=== PATIENT | male | born 1975 | race Caucasian/White ===

== ENCOUNTER 2019-06-19 14:30 | Emergency (ER) | payer MEDICARE, MEDICAID ==
[~2019-06-19] VITALS: Ht 190.5 cm; Wt 78.6 kg
[2019-06-19 16:35] VITALS: BP 105/94
[2019-06-19 17:07] LABS: CLARITY,URINE CLOUDY (Clear); COLOR,URINE YELLOW (Yellow); GLUCOSE, URINE NEGATIVE (Neg); KETONES,URINE NEGATIVE (Neg); LEUKOCYTE ESTERASE ,URINE LARGE (Neg); NITRITES, URINE NEGATIVE (Neg); OCCULT BLOOD,URINE MODERATE (Neg); PROTEIN,URINE NEGATIVE (Neg); UROBILINOGEN,URINE 0.2 E.U/dL (0.2-1.0)
[2019-06-19 17:10] LABS: UA COLLECTION TYPE FOLEY CATH
[2019-06-19 17:19] LABS: AMORPHOUS PHOSPHATES 1+; BACTERIA,URINE 3+ /HPF (Neg); MUCUS STRANDS NONE SEEN /LPF (Neg); SQUAMOUS EPITHELIAL CELL,UR FEW /LPF (FEW); WBC CLUMPS,URINE MANY /HPF (NEGATIVE); WBC,URINE TNTC /HPF (0-4)
[2019-06-19] MEDS ORDERED: CefTRIAXone 1000mg IM Kit (w/lidocaine diluent) IM ONE (17:40)
[2019-06-19] MEDS ORDERED: CEPH250T PO (18:49)
[2019-06-19] MEDS ORDERED: baclofen 10mg tablet PO ONE (18:50)
--- NOTE | 2019-06-19 19:13 | NUR ---
Awaiting pharmacy to verify Gentamycin dose for dc. "Ok" per Dr. Blackwood to hold discharge at this time.
--- NOTE | 2019-06-19 19:13 | NUR ---
Note izaiah in EDM - 06/19/19 at 1922 by ANDRADE Awaiting pharmacy to verify Gentamycin dose for dc. "Ok" per Dr. Blackwood to hold discharge at this time.
[2019-06-19] MEDS ORDERED: SODIUM CL IRRIG IR ONE (19:35)
[2019-06-19] MEDS ORDERED: GENTAMICIN IR ONE (19:35)
--- NOTE | 2019-06-25 16:40 | NUR ---
PT CALLED AND STATED HE IS DOING MUCH BETTER AND HAS NO NEW COMPLAINTS. PT INFORMED THAT IF HE STARTS FEELING ILL AND NOT IMPROVING TO RETURN TO THE ER FOR FURTHER EVALUATION AND POSSIBLE IV ANTIBIOTICS FOR A + URINE CULTURE. PT QUESTIONS ANSWERED AND STATED UNDERSTANDING.
== END 2019-06-19 21:07 | disposition home or self-care (01) ==
LOC: ER 14:31
DX: T83.090A Other mechanical complication of cystostomy catheter, initial encounter (principal); G35 Multiple sclerosis; N39.0 Urinary tract infection, site not specified; Z98.890 Other specified postprocedural states; Y84.6 Urinary catheterization as the cause of abnormal reaction of the patient, or of later complication, without mention of misadventure at the time of the procedure; Y92.89 Other specified places as the place of occurrence of the external cause; Z79.2 Long term (current) use of antibiotics
CPT/HCPCS: 51702; 81001; 87077; 87088; 87186; 96372; 99284; J0696; J1580

== ENCOUNTER 2019-07-01 06:04 | Emergency (ER) | payer MEDICARE, MEDICAID ==
[~2019-07-01] VITALS: Ht 190.5 cm; Wt 77.3 kg
[2019-07-01 06:42] LABS: CLARITY,URINE CLOUDY (Clear); COLOR,URINE STRAW (Yellow); GLUCOSE, URINE NEGATIVE (Neg); KETONES,URINE NEGATIVE (Neg); LEUKOCYTE ESTERASE ,URINE LARGE (Neg); NITRITES, URINE NEGATIVE (Neg); OCCULT BLOOD,URINE MODERATE (Neg); PROTEIN,URINE NEGATIVE (Neg); UROBILINOGEN,URINE 0.2 E.U/dL (0.2-1.0)
[2019-07-01 06:43] LABS: UA COLLECTION TYPE FOLEY CATH
[2019-07-01 06:52] LABS: BACTERIA,URINE 2+ /HPF (Neg); MUCUS STRANDS NONE SEEN /LPF (Neg); SQUAMOUS EPITHELIAL CELL,UR NONE SEEN /LPF (FEW); WBC CLUMPS,URINE MANY /HPF (NEGATIVE); WBC,URINE TNTC /HPF (0-4)
[2019-07-01 06:57] LABS: BASOPHILS % (AUTO) 0.3 % (0-1); EOSINOPHILS # (AUTO) 0.3 X10'3 (0-0.9); HEMATOCRIT 48.1 % (42.0-52.0); HEMOGLOBIN 16.5 g/dl (14.0-17.9); LYMPHOCYTES # (AUTO) 1.1 X10'3 (1.1-4.8); LYMPHOCYTES % (AUTO) 14.3 % (21-51); MEAN CORPUSCULAR HEMOGLOBIN 30.5 PG (27.0-31.0); MEAN CORPUSCULAR HGB CONC 34.3 g/dL (33.0-36.5); MEAN CORPUSCULAR VOLUME 88.8 FL (78-98); MEAN PLATELET VOLUME 8.8 FL (7.4-10.4); MONOCYTES # (AUTO) 0.5 X10'3 (0-0.9); MONOCYTES % (AUTO) 7.2 % (2-12); NEUTROPHILS # (AUTO) 5.6 X10'3 (1.8-7.7); NEUTROPHILS % (AUTO) 74.2 % (42-75); PLATELET COUNT 153 X10'3 (140-440); RED BLOOD COUNT 5.41 X10'6 (4.70-6.10); RED CELL DISTRIBUTION WIDTH 14.3 % (11.5-14.5); WHITE BLOOD COUNT 7.5 X10'3 (4.5-11.0)
[2019-07-01 06:59] LABS: ALANINE AMINOTRANSFERASE 24 U/L (12-78); ALBUMIN 3.3 G/DL (3.4-5.0); ALBUMIN/GLOBULIN RATIO 0.9 (1.1-1.5); ALKALINE PHOSPHATASE 78 IU/L (46-116); ANION GAP 8 (8-16); ASPARTATE AMINO TRANSFERASE 14 U/L (10-37); BILIRUBIN,TOTAL 0.5 MG/DL (0.1-1.0); BLOOD UREA NITROGEN 12 MG/DL (7-18); BUN/CREATININE RATIO 16.9 (5.4-32.0); CALCIUM 9.2 MG/DL (8.5-10.1); CHLORIDE 107 MMOL/L (99-107); CREATININE 0.71 MG/DL (0.60-1.10); GLUCOSE 106 MG/DL (70-104); LIPASE 153 U/L (73-393); POTASSIUM 3.8 MMOL/L (3.5-5.1); SODIUM 143 MMOL/L (135-145); TOTAL CARBON DIOXIDE 27.6 MMOL/L (24-32); TOTAL PROTEIN 6.9 G/DL (6.4-8.2); eGFR > 90 ML/MIN
[2019-07-01] MEDS ORDERED: piperacillin/tazo 3.375gm/50ml 50 ML IV ONE (07:10)
--- NOTE | 2019-07-01 07:45 | NUR ---
PT REQUESTING TO TAKE HIS HOME RX FOR BACLOFEN HE TAKES IT AT 8 AM. SPOKE TO EDWY REGARDING THIS, AND MD CANTORAYED PT TAKING HOME MEDICATION.
--- NOTE | 2019-07-01 10:29 | NUR ---
[facility]NAVA[facility] FOR TRANSPORT. HOME HEALTH LVN HAVE BEEN PAGED.
--- NOTE | 2019-07-01 11:08 | NUR ---
[facility] TRANSPORT INITIATED, ETA WITHIN THE HOUR
--- NOTE | 2019-07-01 12:28 | NUR ---
Pt caregiver called for update on pt transport. Informed that we are awaiting [facility] non-emergent transport. Caregiver advised to call back with any concerns, but is currently waiting pt arrival pending transport.
[2019-07-01 13:08] VITALS: BP 108/66
--- NOTE | 2019-07-01 13:51 | NUR ---
MD coxayed Pt to take dose of home Baclofen.
== END 2019-07-01 14:23 | disposition home or self-care (01) ==
LOC: ER 06:04
DX: N39.0 Urinary tract infection, site not specified (principal); G35 Multiple sclerosis; Z98.890 Other specified postprocedural states
CPT/HCPCS: 36415; 80053; 81001; 83690; 85025; 85610; 87077; 87088; 87186; 96365; 99284; J2543

== ENCOUNTER → 2020-08-19 | Emergency (ER) | payer MEDICARE, MEDICAID ==
[~2020-08-19] VITALS: Ht 190.5 cm; Wt 81.8 kg
[~2020-08-19] MED LIST: baclofen 10mg tablet PO STA; methenamine hippurate 1gm tablet PO STA
[2020-08-19 11:47] VITALS: BP 118/81
--- NOTE | 2020-08-19 16:07 | NUR ---
{null, BLADDER SCAN RESULTS IS 70 ML. SET UP FOR IRRIGATION. UNABLE TO PUSH FLUID THROUGH CATHETER TUBE INTO BLADDER. }
== END | disposition home or self-care (01) ==
LOC: ER 11:42
DX: T83.098A Other mechanical complication of other urinary catheter, initial encounter (principal); G35 Multiple sclerosis; Z98.890 Other specified postprocedural states; Y92.89 Other specified places as the place of occurrence of the external cause
CPT/HCPCS: 51702; 99284

== ENCOUNTER 2021-01-17 18:18 | Emergency (ER) | payer MEDICARE, MEDICAID ==
[~2021-01-17] VITALS: Ht 190.5 cm; Wt 84.1 kg
[2021-01-17 21:21] LABS: BASOPHILS # (AUTO) 0.1 X10'3 (0-0.2); BASOPHILS % (AUTO) 0.7 % (0-1); EOSINOPHILS # (AUTO) 0.2 X10'3 (0-0.9); HEMOGLOBIN 16.6 g/dl (14.0-17.9); LYMPHOCYTES # (AUTO) 1.4 X10'3 (1.1-4.8); LYMPHOCYTES % (AUTO) 17.1 % (21-51); MEAN CORPUSCULAR HEMOGLOBIN 29.7 PG (27.0-31.0); MEAN CORPUSCULAR HGB CONC 33.8 g/dL (33.0-36.5); MEAN CORPUSCULAR VOLUME 87.9 FL (78-98); MONOCYTES # (AUTO) 0.6 X10'3 (0-0.9); NEUTROPHILS # (AUTO) 5.8 X10'3 (1.8-7.7); NEUTROPHILS % (AUTO) 72.2 % (42-75); PLATELET COUNT 191 X10'3 (140-440); RED BLOOD COUNT 5.57 X10'6 (4.70-6.10); RED CELL DISTRIBUTION WIDTH 14.2 % (11.5-14.5); WHITE BLOOD COUNT 8.1 X10'3 (4.5-11.0)
[2021-01-17 22:22] VITALS: BP 106/75
== END 2021-01-17 22:22 | disposition home or self-care (01) ==
LOC: ER 18:19
DX: R31.9 Hematuria, unspecified (principal); N32.89 Other specified disorders of bladder; Z76.89 Persons encountering health services in other specified circumstances; Z98.890 Other specified postprocedural states
CPT/HCPCS: 36415; 85025; 99283

== ENCOUNTER 2021-03-01 22:28 | Emergency (ER) | payer MEDICARE, MEDICAID ==
[~2021-03-01] VITALS: Ht 190.5 cm; Wt 77.7 kg
[2021-03-01 22:55] VITALS: BP 122/92
--- NOTE | 2021-03-02 00:10 | NUR ---
ATTEMPTED TO FLUSH CATHETER PER ORDER, UNSUCCESSFUL.
--- NOTE | 2021-03-02 01:00 | NUR ---
20 Indonesian suprapubic catheter replaced. Urine draining freely, sample sent to Lab. Approx. 1 L urine out. Pt states he feels much better
[2021-03-02 01:17] LABS: CLARITY,URINE CLOUDY (Clear); COLOR,URINE YELLOW (Yellow); GLUCOSE, URINE NEGATIVE (Neg); KETONES,URINE NEGATIVE (Neg); LEUKOCYTE ESTERASE ,URINE LARGE (Neg); NITRITES, URINE NEGATIVE (Neg); OCCULT BLOOD,URINE MODERATE (Neg); PH,URINE 6.5 (4.8-8.0); PROTEIN,URINE NEGATIVE (Neg); UROBILINOGEN,URINE 0.2 E.U/dL (0.2-1.0)
[2021-03-02 01:19] LABS: UA COLLECTION TYPE STRAIGHT CATH
[2021-03-02] MEDS ORDERED: CEPH-585 PO (01:25)
[2021-03-02] MEDS ORDERED: cephalexin 250mg capsule PO ONE ×2 (01:25→01:40)
[2021-03-02 01:29] LABS: BACTERIA,URINE 4+ /HPF (Neg); WBC,URINE 50-100 /HPF (0-4)
[2021-03-02 01:30] LABS: MUCUS STRANDS NONE SEEN /LPF (Neg); SQUAMOUS EPITHELIAL CELL,UR NONE SEEN /LPF (FEW); WBC CLUMPS,URINE FEW /HPF (NEGATIVE)
[2021-03-02] MEDS ORDERED: baclofen 10mg tablet PO ONE ×2 (02:10→05:35)
--- NOTE | 2021-03-02 02:30 | NUR ---
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 Pt has made several attempts to contact others who could help, but calls all go to [facility]. Pt given baclofen 20 mg for muscle tremors. Pt given pillow, warm blankets, and call light. Pt to stay in the ER until he can reach one of his homecare workers for a ride home.
--- NOTE | 2021-03-02 06:00 | NUR ---
Pt given baclofen 20 mg for body tremors. Pt take baclofen at home for tremors. Pt given yogurt and call light placed within reach.
--- NOTE | 2021-03-02 07:09 | NUR ---
Spoke w/ Kathryn ([phone]) who is aware pt needs to be picked up and is in the process of arranging for his transport.
== END 2021-03-02 07:41 | disposition home or self-care (01) ==
LOC: ER 22:29
DX: N39.0 Urinary tract infection, site not specified (principal); Z98.890 Other specified postprocedural states; Z79.2 Long term (current) use of antibiotics
CPT/HCPCS: 81001; 87077; 87088; 87186; 99284

== ENCOUNTER 2021-03-20 09:12 | Emergency (ER) | payer MEDICARE, MEDICAID ==
[~2021-03-20] VITALS: Ht 190.5 cm; Wt 81.8 kg
[~2021-03-20 09:12] MED LIST changes: +CEPH-585 PO; -baclofen 10mg tablet PO STA; -methenamine hippurate 1gm tablet PO STA
[2021-03-20 10:06] LABS: CLARITY,URINE CLOUDY (Clear); COLOR,URINE STRAW (Yellow); GLUCOSE, URINE NEGATIVE (Neg); KETONES,URINE NEGATIVE (Neg); LEUKOCYTE ESTERASE ,URINE LARGE (Neg); NITRITES, URINE POSITIVE (Neg); OCCULT BLOOD,URINE MODERATE (Neg); PH,URINE 7.5 (4.8-8.0); PROTEIN,URINE NEGATIVE (Neg); UROBILINOGEN,URINE 0.2 E.U/dL (0.2-1.0)
[2021-03-20 10:19] LABS: UA COLLECTION TYPE FOLEY CATH
[2021-03-20 10:21] LABS: BACTERIA,URINE 3+ /HPF (Neg); WBC,URINE 30-50 /HPF (0-4)
[2021-03-20 10:22] LABS: AMORPHOUS PHOSPHATES 2+; SQUAMOUS EPITHELIAL CELL,UR FEW /LPF (FEW)
--- NOTE | 2021-03-20 10:32 | NUR ---
PT IS RESTING QUIETLY ON CHAIR, PT WAS DX UTI APPROX 3 WEEKS, TOOK KEFLEX, NICOLAS WAS CHANGED YESTERDAY "HAD GREEN ON IT USUALLY I HAVE WHITE SEDIMENT", PER PT NICOLAS BAG WAS ALSO CHANGED YESTERDAY, DRAINED LAST PM AND THIS AM, NICOLAS IS CLAMPED TO OBTAIN SAMPLE FROM BLADDER
--- NOTE | 2021-03-20 10:44 | NUR ---
SAMPLE FROM PORT OF NICOLAS SENT TO LAB
[2021-03-20 11:28] LABS: CLARITY,URINE CLOUDY (Clear); COLOR,URINE YELLOW (Yellow); GLUCOSE, URINE NEGATIVE (Neg); KETONES,URINE NEGATIVE (Neg); LEUKOCYTE ESTERASE ,URINE LARGE (Neg); NITRITES, URINE NEGATIVE (Neg); OCCULT BLOOD,URINE TRACE-INTACT (Neg); PROTEIN,URINE TRACE mg/dl (Neg); UROBILINOGEN,URINE 0.2 E.U/dL (0.2-1.0)
[2021-03-20 11:33] LABS: UA COLLECTION TYPE FOLEY CATH
[2021-03-20 11:34] LABS: AMORPHOUS PHOSPHATES 3+; SQUAMOUS EPITHELIAL CELL,UR FEW /LPF (FEW)
[2021-03-20 11:35] LABS: BACTERIA,URINE 2+ /HPF (Neg); WBC,URINE 50-100 /HPF (0-4)
[2021-03-20] MEDS ORDERED: CEPH-585 PO (11:51)
--- NOTE | 2021-03-20 11:59 | NUR ---
Nicole Mirza, caregiver, will give pt ride home
[2021-03-20 12:07] VITALS: BP 114/76
== END 2021-03-20 12:08 | disposition home or self-care (01) ==
LOC: ER 09:13
DX: N39.0 Urinary tract infection, site not specified (principal); G82.50 Quadriplegia, unspecified; Z98.890 Other specified postprocedural states; Z79.2 Long term (current) use of antibiotics
CPT/HCPCS: 81001; 87077; 87088; 87186; 99283

== ENCOUNTER 2021-03-22 21:28 | Emergency (ER) | payer MEDICARE, MEDICAID ==
[~2021-03-22] VITALS: Ht 190.5 cm; Wt 81.8 kg
[2021-03-22 22:39] VITALS: BP 143/87
--- NOTE | 2021-03-23 01:03 | NUR ---
assumed care of pt from Deann ZIMMERMAN, pt is resting quietly on gurney, leon is draining clear yellow urine with sediment, pt has emptied leon bag at 0800 200ml, 1800 300ml, 0100 250ml. Pt said he has drank about 2000ml of water today, was prescribed keflex two days ago for UTI. Did not fill rx because he was worried about being constipated and urine turning green. Pt aware he should fill rx and take medication as prescribed for UTI
--- NOTE | 2021-03-23 02:12 | NUR ---
leon continues to drain clear yellow urine with sediment, pt still would like leon irrigated, irrigated with 60 ml of sterile water without complications, emptied leon bag of 200ml urine
== END 2021-03-23 02:51 | disposition home or self-care (01) ==
LOC: ER 22:34
DX: N39.0 Urinary tract infection, site not specified (principal); G82.50 Quadriplegia, unspecified; G35 Multiple sclerosis; Z91.018 Allergy to other foods; Z91.011 Allergy to milk products; Z88.8 Allergy status to other drugs, medicaments and biological substances; Z79.2 Long term (current) use of antibiotics
CPT/HCPCS: 99281; 99283

== ENCOUNTER 2021-03-24 11:26 | Emergency (ER) | payer MEDICARE, MEDICAID ==
[~2021-03-24] VITALS: Ht 190.5 cm; Wt 81.8 kg
[2021-03-24] MEDS ORDERED: LIDOcaine 2% 10ml TOPICAL JELLY (Urojet) TP ONE (13:35)
[2021-03-24 14:51] LABS: BASOPHILS % (AUTO) 0.4 % (0-1); EOSINOPHILS # (AUTO) 0.1 X10'3 (0-0.9); EOSINOPHILS % (AUTO) 1.5 % (0-6); HEMATOCRIT 49.1 % (42.0-52.0); HEMOGLOBIN 16.7 g/dl (14.0-17.9); LYMPHOCYTES # (AUTO) 1.4 X10'3 (1.1-4.8); LYMPHOCYTES % (AUTO) 14.5 % (21-51); MEAN CORPUSCULAR HEMOGLOBIN 30.5 PG (27.0-31.0); MEAN CORPUSCULAR HGB CONC 34.1 g/dL (33.0-36.5); MEAN CORPUSCULAR VOLUME 89.6 FL (78-98); MEAN PLATELET VOLUME 8.4 FL (7.4-10.4); MONOCYTES # (AUTO) 0.6 X10'3 (0-0.9); MONOCYTES % (AUTO) 6.8 % (2-12); NEUTROPHILS # (AUTO) 7.3 X10'3 (1.8-7.7); NEUTROPHILS % (AUTO) 76.8 % (42-75); PLATELET COUNT 171 X10'3 (140-440); RED BLOOD COUNT 5.49 X10'6 (4.70-6.10); RED CELL DISTRIBUTION WIDTH 14.6 % (11.5-14.5); WHITE BLOOD COUNT 9.4 X10'3 (4.5-11.0)
[2021-03-24 14:53] LABS: CLARITY,URINE SLIGHTLY CLOUDY (Clear); COLOR,URINE YELLOW (Yellow); GLUCOSE, URINE NEGATIVE (Neg); KETONES,URINE NEGATIVE (Neg); LEUKOCYTE ESTERASE ,URINE LARGE (Neg); NITRITES, URINE POSITIVE (Neg); OCCULT BLOOD,URINE SMALL (Neg); PROTEIN,URINE NEGATIVE (Neg); UROBILINOGEN,URINE 0.2 E.U/dL (0.2-1.0)
[2021-03-24 14:55] LABS: UA COLLECTION TYPE FOLEY CATH
[2021-03-24 14:59] LABS: ALANINE AMINOTRANSFERASE 22 U/L (12-78); ALBUMIN 3.3 G/DL (3.4-5.0); ALBUMIN/GLOBULIN RATIO 0.9 (1.1-1.5); ALKALINE PHOSPHATASE 106 IU/L (46-116); ANION GAP 6 (8-16); ASPARTATE AMINO TRANSFERASE 17 U/L (10-37); BILIRUBIN,TOTAL 0.6 MG/DL (0.1-1.0); BLOOD UREA NITROGEN 12 MG/DL (7-18); BUN/CREATININE RATIO 19.4 (5.4-32.0); CALCIUM 9.1 MG/DL (8.5-10.1); CHLORIDE 104 MMOL/L (99-107); CREATININE 0.62 MG/DL (0.60-1.10); GLUCOSE 91 MG/DL (70-104); SODIUM 141 MMOL/L (135-145); TOTAL CARBON DIOXIDE 30.7 MMOL/L (24-32); TOTAL PROTEIN 7.1 G/DL (6.4-8.2); eGFR > 90 ML/MIN
[2021-03-24 15:03] LABS: WBC,URINE 30-50 /HPF (0-4)
[2021-03-24 15:04] LABS: BACTERIA,URINE 3+ /HPF (Neg); SQUAMOUS EPITHELIAL CELL,UR NONE SEEN /LPF (FEW)
[2021-03-24 15:05] LABS: AMORPHOUS URATES 2+
--- NOTE | 2021-03-24 15:45 | NUR ---
SUPRAPUBIC CATH FLUSHED WITH 120 ML OF STERILE WATER, RETURNED INTO CATH BAG. EASY FLUSH. NOTED SLIGHT DRAINAGE CLEAR FROM PENIS. DR MASTERS AWARE. PT'S CAREGIVERS SPOKE WITH LI ON PHONE, THEY ARE INSTRUCTED TO F/U WITH HIS UROLOGIST.
[2021-03-24 16:26] VITALS: BP 127/81
--- NOTE | 2021-03-27 08:24 | NUR ---
PT CALLED AND NOTIFIED THAT URINE CULTURE CAME BACK POSITIVE FOR UTI. PT ADVISED THAT AND ABX WOULD BE ORDERED FOR HIM. PT STATES THAT HE IS CURRENTLY ON KEFLEX. DR RAHMAN NOTIFIED AND ORDERED TO STOP TAKING KEFLEX AND START CIPRO 500MG PO BID x7 DAYS. PT NOTIFIED TO STOP TAKING KEFLEX AND REQUESTED THAT NEW ABX BE CALLED INTO [facility] IN [place]. CIPRO 500MG PO BID x7 DAYS #14 CALLED INTO [facility] IN [place] PT REQUESTED.
== END 2021-03-24 16:34 | disposition home or self-care (01) ==
LOC: ER 11:26
DX: T83.098A Other mechanical complication of other urinary catheter, initial encounter (principal); G82.50 Quadriplegia, unspecified; G35 Multiple sclerosis; Z91.018 Allergy to other foods; Z91.011 Allergy to milk products; Z79.2 Long term (current) use of antibiotics; Y92.89 Other specified places as the place of occurrence of the external cause
CPT/HCPCS: 36415; 80053; 81001; 85025; 87077; 87088; 87186; 99283

== ENCOUNTER 2021-05-11 14:06 | Emergency (ER) | payer MEDICARE, MEDICAID ==
[~2021-05-11] VITALS: Ht 190.5 cm; Wt 81.8 kg
[2021-05-11 14:13] VITALS: BP 121/83
--- NOTE | 2021-05-11 16:58 | NUR ---
20 azeri suprapubic leon inserted with sterile technique, 50ml of dark yellow urine initial output, pt kirstie well
[2021-05-11] MEDS ORDERED: SULF1TAB45 PO (17:00)
[2021-05-11 17:19] LABS: CLARITY,URINE CLOUDY (Clear); COLOR,URINE YELLOW (Yellow); GLUCOSE, URINE NEGATIVE (Neg); KETONES,URINE NEGATIVE (Neg); LEUKOCYTE ESTERASE ,URINE LARGE (Neg); NITRITES, URINE POSITIVE (Neg); OCCULT BLOOD,URINE MODERATE (Neg); PH,URINE 7.5 (4.8-8.0); PROTEIN,URINE 30 mg/dl (Neg); UROBILINOGEN,URINE 0.2 E.U/dL (0.2-1.0)
[2021-05-11 17:24] LABS: UA COLLECTION TYPE FOLEY CATH
[2021-05-11 17:26] LABS: BACTERIA,URINE 2+ /HPF (Neg); MUCUS STRANDS FEW /LPF (Neg); SQUAMOUS EPITHELIAL CELL,UR FEW /LPF (FEW); WBC,URINE TNTC /HPF (0-4)
== END 2021-05-11 17:30 | disposition home or self-care (01) ==
LOC: ER 14:07
DX: T83.098A Other mechanical complication of other urinary catheter, initial encounter (principal); G35 Multiple sclerosis; Z79.2 Long term (current) use of antibiotics; Z79.899 Other long term (current) drug therapy; Z88.8 Allergy status to other drugs, medicaments and biological substances; Z91.018 Allergy to other foods; Y84.6 Urinary catheterization as the cause of abnormal reaction of the patient, or of later complication, without mention of misadventure at the time of the procedure; Y92.89 Other specified places as the place of occurrence of the external cause
CPT/HCPCS: 51702; 81001; 99284

== ENCOUNTER → 2025-03-09 | Outpatient (CLI) | payer MEDICARE, MEDICAID ==
[~2025-03-09] VITALS: Ht 180.3 cm; Wt 99.8 kg
[2025-03-09] MEDS: albuterol 2.5 MG/3 ML nebule NEB ONE (11:11)
[2025-03-09 11:29] VITALS: PULSE 68; RESP 18; O2SAT 97
[2025-03-09 11:39] VITALS: PULSE 88; RESP 18
--- NOTE | 2025-03-10 10:54 | PROCEDURE NOTE - Respiratory ---
Procedure Note-Respiratory Providers to CC Copies To 1: MELODY MERA MD Procedure Name: This is a spirometry study dated March 09, 2025. The spirometry study was performed both before and after inhaled bronchodilator. There was also a lung diffusion measurement accomplished. Spirometry measurements: There is severe reduction in both the forced vital capacity and the FEV1. The FEV1 ratio is slightly elevated. All of the measured flow rates are quite poor. After inhaled bronchodilators some of the flow rates show minimal improvement. Lung diffusion measurement: The DLCO measurement is within normal limits. Overall conclusion: This study shows severe abnormality. The predominant abnormality is that of a severe restrictive ventilatory defect. The restrictive process is likely related to the patient's underlying neurologic condition of multiple sclerosis. In addition there is evidence of mild obstructive ventilatory defect which is consistent with the patient's history of asthma. We have no previous studies for comparison. Close follow-up is recommended for this patient with severely abnormal pulmonary physiology. Continued use of bronchodilator therapy is recommended for this patient. MEG DOWNS MD March 10, 2025 10:54
== END | disposition home or self-care (01) ==
LOC: RT 10:21
PROVIDERS: ATTEND Family Medicine
DX: R06.02 Shortness of breath (principal); J98.8 Other specified respiratory disorders
CPT/HCPCS: 94060; 94729; 94760